=== PATIENT | female | born 1945 | race Caucasian/White ===

== ENCOUNTER 2020-04-23 08:19 | Outpatient (CLI) | payer MEDICARE, SELFPAY ==
--- NOTE | 2020-04-25 18:42 | WPDPFTINT ---
PFT Interpretation PFT Interpretation: DOS:04/23/2020 REQUESTING: Dr. Guy Carrillo REASON FOR TESTING: Dyspnea on exertion PULMONARY FUNCTION TESTS Results are reproducible Spirometry: FEV1 is 93%, FVC 95%, both are normal. FEV1% is 69%, decreased, consistent with mild airflow obstruction. No bronchodilator was given. Lung volumes: TLC 111%, normal. RV is 134% consistent with mild air trapping. Airway resistance is 186% increased. ERV is very low 24%, may be due to increased BMI. Diffusion: DLCO moderately decreased at 54%. Flow volume loop: Mild coving of the expiratory limb. IMPRESSION: Mild obstructive ventilatory impairment with mild air trapping and moderate diffusion impairment. No bronchodilator was given. A trial of bronchodilators can be considered. This pattern is consistent with COPD. Clotilde Real MD
== END 2020-04-23 08:20 | disposition home or self-care (01) ==
PROVIDERS: PCP Family Medicine Adolescent Medicine; Visit Provider Family Medicine Adolescent Medicine
DX: R06.00 Dyspnea, unspecified (principal); R94.2 Abnormal results of pulmonary function studies
CPT/HCPCS: 94375; 94726; 94729

== ENCOUNTER → 2022-11-11 10:54 | Outpatient (CLI) | payer MEDICARE, SELFPAY ==
--- NOTE | ~2022-11-11 | XR_ITS ---
XR hip LT min 2V 11/11/2022 11:15 Indication: Left hip pain Procedure: 2 views left hip Comparison: No prior studies for comparison. Findings: No fracture or traumatic malalignment. Mild osteoarthritis of the left hip. No significant soft tissue abnormality. Surrounding osseous structures within normal limits. Impression: 1: No acute bone or joint abnormality. Reviewed, dictated and finalized at location A. IFIED TECHNICIAN SPECIALIST Impression: 1: No acute bone or joint abnormality.
== END ==
PROVIDERS: PCP Family Medicine Adolescent Medicine; Visit Provider Physician Assistant
DX: M25.552 Pain in left hip (principal)
CPT/HCPCS: 73502

== ENCOUNTER 2023-03-22 09:36 | Outpatient (CLI) | payer MEDICARE, SELFPAY ==
--- NOTE | 2023-03-22 12:35 | WPDSIXMINUTE ---
Six Minute Walk Procedure Procedure Performed Pulmonary Stress Test (6 min walk) Six Minute Walk Six Minute Walk: This is a 6 minute walk test. The test was performed and interpreted in accordance with the 2014 ERS/ATS task force guidelines. of note the patient walked with a cane. Findings: The patient's resting room air oxygen saturation measured by pulse oximetry was 94% and heart rate was 72 bpm. Patient ambulated for 274 meters and oxygen saturation remained 92 to 97%. Heart rate at the end of the study was 94 bpm. The patient did not qualify for supplemental oxygen at rest or with ambulation. There are no prior studies for comparison.
--- NOTE | 2023-03-22 12:37 | P.PCNPFT_ITS ---
PFT Procedure Performed PFT Procedure Performed Plethysmography (Lung Vol) Diffusing Cap (DLCO) Flow Vol Loop Spirometry w/o Bronchodil PFT Interpretation This is a pulmonary function test with spirometry, plethysmography and diffusing capacity. The test was performed and results interpreted in accordance with the 2019 and 2005 ATS/ERS Task Force guidelines respectively using the Global Lung Function Initiative-2012 reference equations. Patient demonstrated good effort and cooperation. Reproducibility criteria were met. The quality of the spirometry maneuver was Grade A. Findings: Spirometry: The contour the inspiratory and expiratory flow tracing are normal. The FVC is 3.54 L, 120% predicted. The FEV1 is 2.30 L, 103% predicted. The FEV1: FVC ratio 65%. Plethysmography: The total lung capacity is 6.13 L, 112% predicted. The functional residual capacity is 3.19 L, 100% predicted. The residual volume is 2.57 L, 104% predicted. Diffusion capacity: The diffusing capacity unadjusted for hemoglobin and carboxyhemoglobin is 15.5, 74% predicted. Diffusing capacity adjusted for alve olar volume is 3.29, 81% predicted. In comparison to previous pulmonary function testing on 04/23/2020 the FVC has increased from 2.94 L to 3.54 L. the FEV1 has increased from 2.04 L to 2.30 L. the total lung capacity is unchanged from 5.99 L to 6.13 L. The functional residual capacity is unchanged from 3.30 L to 3.19 L. The residual volume is unchanged from 2.97 L to 2.57 L. The diffusing capacity unadjusted for hemoglobin and carboxyhemoglobin is increased from 13.5 to 15.5. The diffusing capacity adjusted for alveolar volume is unchanged from 3.17 to 3.29. Impression: The spirometry is normal without evidence of an obstructive abnormality. The lung volumes are normal. The diffusing capacity is normal. In comparison to previous pulmonary function testing on 04/23/2020 there has been a greater than anticipated time dependent increase in the FVC, FEV1 and diffusing capacity unadjusted for hemoglobin and carboxyhemoglobin with no significant change in the total lung capacity, functional residual capacity, residual volume or diffusing capacity adjusted for alveolar volume. Clinical correlation is recommended.
== END 2023-03-22 09:37 | disposition home or self-care (01) ==
LOC: ANHPFT 09:38
PROVIDERS: PCP Family Medicine Adolescent Medicine; Visit Provider Nurse Practitioner Family
DX: J44.9 Chronic obstructive pulmonary disease, unspecified (principal)
CPT/HCPCS: 94375; 94618; 94726; 94729

== ENCOUNTER 2023-07-12 16:30 | Outpatient (RCR) | payer MEDICARE, SELFPAY | END 2023-07-12 23:59 | disposition home or self-care (01) | LOC: ANHCPREHAB 16:30 | PROVIDERS: PCP Family Medicine Adolescent Medicine; Visit Provider Family Medicine Adolescent Medicine | DX: J44.9 Chronic obstructive pulmonary disease, unspecified (principal) | CPT/HCPCS: 94625 ==

== ENCOUNTER → 2023-08-24 14:33 | Outpatient (CLI) | payer MEDICARE, SELFPAY ==
--- NOTE | ~2023-08-24 | XR_ITS ---
XR chest 2V DATE: 08/24/2023 14:51 INDICATION: Chronic obstructive pulmonary disease TECHNIQUE: PA and lateral chest COMPARISON: 03/20/2019 PA and lateral chest FINDINGS: Normal heart size. No hilar or mediastinal enlargement. There is moderate bilateral hyperinflation consistent with history of COPD. There is mild left retrocardiac lower lobe infiltrate and/atelectasis. No pulmonary infiltrate or consolidation, pleural effusion or pulmonary vascular congestion or pneumo thorax is noted otherwise. IMPRESSION: Mild left lower lobe infiltrate and/atelectasis COPD Reviewed, dictated and finalized at location A. OLL SERVICES ANALYST
== END ==
PROVIDERS: PCP Nurse Practitioner Family; Visit Provider Nurse Practitioner Family
DX: R05.9 Cough, unspecified (principal); J44.9 Chronic obstructive pulmonary disease, unspecified; R91.8 Other nonspecific abnormal finding of lung field
CPT/HCPCS: 71046

== ENCOUNTER 2023-09-26 12:38 | Outpatient (CLI) | payer MEDICARE, SELFPAY ==
--- NOTE | 2023-09-26 16:55 | WPDSIXMINUTE ---
Six Minute Walk Procedure Procedure Performed Pulmonary Stress Test (6 min walk) Six Minute Walk Six Minute Walk: This is a 6 minute walk test. The test was performed and interpreted in accordance with the 2014 ERS/ATS task force guidelines. Findings: The patient's resting room air oxygen saturation measured by pulse oximetry was 96% and heart rate was 76 bpm. Patient ambulated for 366 meters and oxygen saturation remained 93 to 96%. Heart rate at the end of the study was 99 bpm. The patient did not qualify for supplemental oxygen at rest or with ambulation. In comparison to 6 minute walk performed on 03/22/2023 the ambulatory distance increased from 274 meters to 366 meters.
== END 2023-09-26 12:39 | disposition home or self-care (01) ==
LOC: ANHPFT 12:39
PROVIDERS: PCP Nurse Practitioner Family; Visit Provider Family Medicine Adolescent Medicine
DX: J44.9 Chronic obstructive pulmonary disease, unspecified (principal)
CPT/HCPCS: 94618

== ENCOUNTER 2023-09-28 13:30 | Outpatient (RCR) | payer MEDICARE, SELFPAY | END 2023-09-28 16:30 | disposition home or self-care (01) | LOC: ANHCPREHAB 13:30 | PROVIDERS: PCP Family Medicine Adolescent Medicine; Visit Provider Family Medicine Adolescent Medicine | DX: J44.9 Chronic obstructive pulmonary disease, unspecified (principal) | CPT/HCPCS: 93798; 94625 ==

== ENCOUNTER 2024-07-15 13:54 | Outpatient (CLI) | payer MEDICARE, SELFPAY ==
--- NOTE | ~2024-07-15 | XR_ITS ---
XR ankle RT 2V 07/15/2024 14:11 INDICATION: Right ankle pain PROCEDURE: 2 views right ankle COMPARISON: No prior studies for comparison. FINDINGS: Fracture, dislocation or subluxation is not identified. There is moderate lateral soft tiss ue swelling. There is a small degenerative calcaneal enthesophyte. No foreign bodies are identified. IMPRESSION: 1: NO ACUTE BONE OR JOINT ABNORMALITY IDENTIFIED. Reviewed, dictated and finalized at location B.
--- NOTE | ~2024-07-15 | XR_ITS ---
XR ankle LT 2V 07/15/2024 14:11 Indication: Left ankle pain Procedure: 2 views left ankle Comparison: No prior studies for comparison. Findings: There is a small loose body lateral to the fibula, suspicious for an age-indeterminate avul coco fracture. Moderate lateral soft tissue swelling. Ankle mortise intact. Impression: 1: Possible age indeterminate avulsion fracture distal margin of the fibula. Correlate for point tend erness. Reviewed, dictated and finalized at location B. Impression: 1: Possible age indeterminate avulsion fracture distal margin of the fibula. Co rrelate for point tenderness.
== END 2024-07-15 13:55 | disposition home or self-care (01) ==
LOC: GOSHIMG 13:56
PROVIDERS: PCP Nurse Practitioner Family; Visit Provider Nurse Practitioner Family
DX: M25.572 Pain in left ankle and joints of left foot (principal); M25.571 Pain in right ankle and joints of right foot; W19.XXXA Unspecified fall, initial encounter
CPT/HCPCS: 73600

== ENCOUNTER 2024-09-02 09:20 | Outpatient (CLI) | payer MEDICARE, SELFPAY ==
--- NOTE | ~2024-09-02 | NM_ITS ---
EXAMINATION: NM gogo stress w perfusion DATE: 09/02/2024 12:43 INDICATION: Other forms of dyspnea TECHNIQUE: Rest images were obtained following intravenous administration of 8.4 mCi Tc99m tetrofosmi n (Myoview). The patient was infused intravenously with Lexiscan (Regadenoson). Then, 26.2 mCi Tc99m tetrofosmin (Myoview) was administered intravenously, and stress images were obtained. Data was recon structed into short axis and horizontal and vertical long axis SPECT images. Gated SPECT images were also obtained. COMPARISON: None. FINDINGS: There is no definite reversible or fixed perfusion abnormality to suggest ischemia or infar ction. There is normal left ventricular chamber size, wall motion and ejection fraction. Left ventr icular ejection fraction measures 64%. IMPRESSION: 1. Normal myocardial perfusion at rest and during stress. 2. Left ventricular ejection fraction measuring 64%. Reviewed, dictated and finalized at location A. RESSED GAS TESTER
--- NOTE | 2024-09-02 09:25 | EST_ITS ---
Patient Info Name: Britni Rockwell Age: 79 years : 1945 Gender: Female Ht: 67 in Wt: 198 lbs BSA: 2.09 m2 HR: 72 bpm BP: 134 / 85 mmHg Exam Date: 09/02/2024 11:32 AM Exam Location: Echo Lab Patient Status: Outpatient Admit Date: 09/02/2024 Staff Ordering Physician: Priti Wilder APRN Attending Provider: Priti Wilder APRN Exercise Technologist: Elsie Delgado [facility] Exercise Physician: Eyal Acuna DO Exam Type: CA stress gogo w NM Study Info A regadenoson stress test was performed. Summary 1. 1. Negative lexiscan stress test for ischemic ST changes by ECG criteria. 2. 2. Stable hemodynamics throughout the test. 3. 3. Nuclear scan to follow and will be reported separately. Please correlate with it. 4. 4. Patient informed of the above results. Protocol: Lexiscan Stress ECG Details Stage: REST Duration (min): 3 min : 1 sec HR (bpm): 71 SBP (mmHg): 134 DBP (mmHg): 85 Stage: REST Duration (min): 7 min : 54 sec HR (bpm): 72 SBP (mmHg): 134 DBP (mmHg): 85 Stage: STAGE 1 Duration (min): 1 min : 0 sec HR (bpm): 84 SBP (mmHg): 156 DBP (mmHg): 87 Stage: RECOVERY Duration (min): 1 min : 0 sec HR (bpm): 84 SBP (mmHg): 156 DBP (mmHg): 87 Stage: RECOVERY Duration (min): 2 min : 0 sec HR (bpm): 84 SBP (mmHg): 156 DBP (mmHg): 87 Stage: RECOVERY Duration (min): 3 min : 0 sec HR (bpm): 82 SBP (mmHg): 148 DBP (mmHg): 83 Stage: RECOVERY Duration (min): 3 min : 5 sec HR (bpm): 82 SBP (mmHg): 148 DBP (mmHg): 83 Rest HR: 72 bpm Peak HR: 87 bpm Rest Sys BP: 134 mmHg Peak Sys BP: 156 mmHg Max Pred HR: 142 bpm % Max Pred HR: 61 % Target HR: 121 bpm Max RPP: 13,572 bpm*mmHg Termination Reason: Completed protocol Cardiac Symptoms: Shortness of breath Total Time: 1 min : 0 sec Rest Ba BP: 85 mmHg Peak Ba BP: 87 mmHg Total Dose: 0.4 mg Resting ECG Sinus rhythm. Stress ECG No ST changes. Arrhythmias None. Report Signatures
== END 2024-09-02 09:21 | disposition home or self-care (01) ==
LOC: ANHCARD 09:20
PROVIDERS: PCP Nurse Practitioner Family; Visit Provider Nurse Practitioner Family
DX: R06.09 Other forms of dyspnea (principal)
CPT/HCPCS: 78452; 93017; A9502; J2785

== ENCOUNTER 2024-10-29 00:18 | Day surgery (SDC) | payer MEDICARE, SELFPAY ==
[2024-10-15 14:44] VITALS: BMI 31.4
--- OUTSIDE RECORDS SUMMARY | 2024-10-29 00:24 | XMS_ITS | Clinical Summary ---
Author Organization [facility] [place] [address] Address [address] [place] [id number] Care Team Providers Care Shipping Point Inspector Name Role Phone Guy San MD Primary Care Prov ider Allergies No known active allergies Medications Synthroid 125 mcg tablet Take 1 tablet (125 mcg total) by mouth daily 2 Active Anoro Ellipta 62.5-25 mcg/actuation blister with device 1 puff daily 2 Active albuterol HFA (PROVENTIL HFA,VENTOLIN HFA,PROAIR HFA) 90 mcg/actuation inhalerIndicati ons:Viral URI with cough Inhale 2 puffs every 6 (six) hours as needed for wheezing 3 each 4 2 Active mupirocin (BACTROBAN) 2 % ointmentIndicat ions:Bug bite, initial encounter Apply topically 3 (three) times a day 22 g 2 Active benzonatate (TESSALON) 100 mg capsuleIndicati ons:Cough Take 1 capsule (100 mg total) by mouth 3 (three) times a day as needed for cough 42 capsule 3 Active Active Problems No known active problems Social History Tobacco Use Types Packs/Day Years Used Date Smoking Tobacco: Former Tobacco Cessation:Counseling Given: Not Answered Comments Unknown Sex and Gender Information Value Date Recorded Sex Assigned at Not on file Legal Sex Female 4:52 PM NANNY BABYSITTER Gender Identity Not on file Sexual Orientation Not on file Obstetrics History Last Filed Vital Signs Vital Sign Reading Time Taken Comments Blood Pressure 124/78 08/11/2023 4:10 PM NANNY BABYSITTER Pulse 86 08/11/2023 4:10 PM NANNY BABYSITTER Temperature 36.8 ??C (98.2 ??F) 08/11/2023 4:10 PM CS T Respiratory Rate 16 08/11/2023 4:10 PM NANNY BABYSITTER Oxygen Saturation 98% 08/11/2023 4:10 PM NANNY BABYSITTER Inhaled Oxygen Concentration - - Weight 103.6 kg (228 lb 8 oz) 05/21/2023 4:55 PM CDT Height 172.7 cm (5' 7.99 ) 05/21/2023 4:55 PM CD T Body Mass Index 34.75 05/21/2023 4:55 PM CDT Plan of Treatment Health Maintenance Due Date Last Done Comments Depression Screening 1945 Fall Risk Assessment 1945 Hepatitis C Screening 1945 Osteoporosis Screening-Bone Density Scan 1945 DTaP/Tdap/Td Vaccine (1 - Tdap) 1957 Hepatitis B Screening 1964 Zoster Vaccine (1 of 2) 1996 Pneumococcal vaccine 65+ (1 of 1 - PCV) 2011 Well Visit 65+ 2011 Covid-19 Vaccine ( season) 2024 07/18/2021, 12/14/2020, 11/23/2020 Influenza Vaccine (#1) 2024 07/18/2021 Insurance MEDICARE [facility] MEDICARE [facility] Address: [address] [address] [place] [address] [employer] Care Teams Shipping Point Inspector Relationship Specialty Start Date End Date Guy San MD [address] [place] [address] PCP - General Family Medicine 08/25/21
--- OUTSIDE RECORDS SUMMARY | 2024-10-29 00:24 | XMS_ITS | Referral Summary ---
Author Organization [facility] [place] [address] [place] Address [address] [place] [id number] Care Team Providers Care Service Specialist Name Role Phone Guy San MD Primary [...] on file Legal Sex Female 4:52 PM PAINTER CHASSIS Gender Identity Not on file Sexual Orientation Not on file Last Filed Vital Signs Vital Sign Reading Time Taken Comments Blood Pressure 124/78 08/11/2023 4:10 PM PAINTER CHASSIS Pulse 86 08/11/2023 4:10 PM PAINTER CHASSIS Temperature 36.8 ??C (98.2 ??F) 08/11/2023 4:10 PM CS T Respiratory Rate 16 08/11/2023 4:10 PM PAINTER CHASSIS Oxygen Saturation 98% 08/11/2023 4:10 PM PAINTER CHASSIS Inhaled Oxygen Concentration - - Weight 103.6 kg (228 lb 8 oz) 05/21/2023 4:55 PM CDT Height 172.7 cm (5' 7.99 ) 05/21/2023 4:55 PM CD T Body Mass Index 34.75 05/21/2023 4:55 PM CDT Plan of Treatment Not on file Insurance MEDICARE [employer] [facility] MEDICARE [employer] Care Teams Service Specialist Relationship Specialty Start Date End Date Guy San MD [address] [place] [address] PCP - General Family Medicine 08/25/21
[2024-10-29 06:00] VITALS: BP 163/101; PULSE 86; RESP 20; TEMP 36.6; O2SAT 98
--- NOTE | 2024-10-29 10:51 | P.PNAN_ITS ---
Anes - Initial Pre Proc Eval Procedure: Operation Date: 10/29/24 11:00 Proposed Procedures p Colonoscopy - Lenin Caal MD Date/Time: 10/29/24 10:51 Surgeon: Lenin Caal MD Pre Op Diagnosis: family history of malignant neoplasm digestive org Patient Data Age: 79 Gender: F Height: 1.7 m Weight: 90.9 kg Allergies Allergy/AdvReac Type Severity Reaction Status Date / Time umeclidinium (From Anoro AdvReac Intermediate Rash Verified 10/29/24 10:42 Ellipta) vilanterol (From Anoro AdvReac Intermediate Rash Verified 10/29/24 10:42 Ellipta) [id number] Reductase AdvReac Unknown Joint Pain Verified 10/29/24 10:42 Inhibitor Home Medications ?Medication ?Instructions ?Recorded ?Confirmed ?Type albuterol sulfate 90 mcg/actuation 1 puff inhalation Q4H PRN 09/08/23 10/15/24 Rx aerosol inhaler shortness of breath or wheezing #8.5 grams albuterol sulfate 5 mg/mL(0.5 %) 2.5 mg (0.5 mL) inhalation Q6H PRN 07/16/24 10/29/24 Rx solution for nebulization shortness of breath or wheezing #600 mL arformoterol 15 mcg/2 mL solution 2 ml inhalation BID #120 mL 07/16/24 10/15/24 Rx for nebulization budesonide 0.25 mg/2 mL suspension 0.25 mg (2 mL) inhalation BID #120 07/16/24 10/15/24 Rx for nebulization mL levothyroxine 150 mcg tablet 150 mcg PO DAILY #90 tabs 08/08/24 10/29/24 Rx ferrous sulfate 325 mg (65 mg 325 mg PO DAILY 10/15/24 10/29/24 History iron) tablet (Iron (ferrous sulfate)) vit C 250 mg-vit E 200 unit-zinc 1 cap PO .qday 10/15/24 10/29/24 History ox 12.5 vu-avdmmf-oplxxd-zeax capsule Patient hx anesthesia problems: none Family hx anesthesia problems: none Results Review: All pre-operative results and documents have been reviewed as part of the pre-operative evaluation. [facility] Past Medical History Medical History Acute sickle cell crisis Family History Family History Father Carcinoma of colon Mother Heart disease Social History Social History Smoking packs per day: 0.4 Smoking cigarettes per day: 8.0 Years smoked: 20 Smoking pack-years: 8.00 Smoking status: Former smoker Tobacco type: cigarettes Second hand tobacco smoke exposure: No Smoking end date: 09/24/95 Additional smoking assessment comments: states she smoked off and on over the years at times for years Alcohol intake: current Drinks per week: 2 Alcohol use details: couple times a month Substance use: never Substance use type: does not use Lack of Transportation: No Lack of Food: Never True Current Housing: I Have Housing Concerned About Future Housing: No Difficulty Paying Gas/Electric Bills: No Difficulty Paying for Meds: No Currently Unemployed: No Education: Associate Degree Difficulty w/ Childcare or Family Care: No Living arrangements: with family Additional living arrangements comments: with daughter Occupation/Education: retired Gender identity (if verbalized by the patient): Female Sexual Orientation (if Verbalized by the Patient): Straight or Heterosexual Spiritual care concerns: No Agree to blood products: Yes Anes - Eval Final PreProcedure Day of Procedure 10/29/24 10:51 Patient weight: obese Heart: regular rate and rhythm Lungs: decreased breath sounds Airway: Mallampati scale class II Neurological: alert and oriented Last oral intake: >/= 8 hours ASA classification: III Emergent: no Anesthetic plan: proceed Anesthesia type and monitoring: general GIVS and standard monitoring Results Review: All pre-operative results and documents have been reviewed as part of the pre-operative evaluation. Informed Consent: The patient's anesthetic plan and its attendant risks and benefits were discussed with the patient/family/POA. Questions were solicited and answers provided to the satisfaction of the patient/family/POA.
[2024-10-29 11:02] VITALS: BMI 34.1
--- NOTE | 2024-10-29 11:27 | PM.HPGS ---
History of Present Illness History of Present Illness Consent: Risks, benefits, and alternatives have been discussed and questions answered. Patient agrees to proceed with procedure. Chief complaint: family history of malignant neoplasm digestive org Narrative: Britni Rockwell is a 79 year old female here for first screening colonoscopy, also h/o chronic diarrhea Review of Systems Review of Systems: All systems reviewed & are unremarkable except as noted in HPI and below PMFSH Past Medical History Medical History Acute sickle cell crisis Family History Family History Father Carcinoma of colon Mother Heart disease Social History Social History Smoking packs per day: 0.4 Smoking cigarettes per day: 8.0 Years smoked: 20 Smoking pack-years: 8.00 Smoking status: Former smoker Tobacco type: cigarettes Second hand tobacco smoke exposure: No Smoking end date: 09/24/95 Additional smoking assessment comments: states she smoked off and on over the years at times for years Alcohol intake: current Drinks per week: 2 Alcohol use details: couple times a month Substance use: never Substance use type: does not use Lack of Transportation: No Lack of Food: Never True Current Housing: I Have Housing Concerned About Future Housing: No Difficulty Paying Gas/Electric Bills: No Difficulty Paying for Meds: No Currently Unemployed: No Education: Associate Degree Difficulty w/ Childcare or Family Care: No Living arrangements: with family Additional living arrangements comments: with daughter Occupation/Education: retired Gender identity (if verbalized by the patient): Female Sexual Orientation (if Verbalized by the Patient): Straight or Heterosexual Spiritual care concerns: No Agree to blood products: Yes Meds Home Medications and Allergies Home Medications ?Medication ?Instructions ?Recorded ?Confirmed ?Type albuterol sulfate 90 mcg/actuation 1 puff inhalation Q4H PRN 09/08/23 10/15/24 Rx aerosol inhaler shortness of breath or wheezing #8.5 grams albuterol sulfate 5 mg/mL(0.5 %) 2.5 mg (0.5 mL) inhalation Q6H PRN 07/16/24 10/29/24 Rx solution for nebulization shortness of breath or wheezing #600 mL arformoterol 15 mcg/2 mL solution 2 ml inhalation BID #120 mL 07/16/24 10/15/24 Rx for nebulization budesonide 0.25 mg/2 mL suspension 0.25 mg (2 mL) inhalation BID #120 07/16/24 10/15/24 Rx for nebulization mL levothyroxine 150 mcg tablet 150 mcg PO DAILY #90 tabs 08/08/24 10/29/24 Rx ferrous sulfate 325 mg (65 mg 325 mg PO DAILY 10/15/24 10/29/24 History iron) tablet (Iron (ferrous sulfate)) vit C 250 mg-vit E 200 unit-zinc 1 cap PO .qday 10/15/24 10/29/24 History ox 12.5 sz-eaamdj-phdycu-zeax capsule Allergies Allergy/AdvReac Type Severity Reaction Status Date / Time umeclidinium (From Anoro AdvReac Intermediate Rash Verified 10/29/24 10:42 Ellipta) vilanterol (From Anoro AdvReac Intermediate Rash Verified 10/29/24 10:42 Ellipta) [id number] Reductase AdvReac Unknown Joint Pain Verified 10/29/24 10:42 Inhibitor Vital Signs Vital Signs - 24 hr 10/29/24 06:00 Temperature 98 F Pulse Rate 86 Respiratory Rate 20 Blood Pressure 163/101 H Pulse Oximetry 98 Oxygen Delivery Room Air Exam Const: General: comfortable and no acute distress HENMT: Face/Nose/Sinus: Normal nares present Eyes: General: appearance normal, both eyes and all related structures Neck: Neck: no JVD Resp: Auscultation: clear to auscultation bilaterally Cardio: Rate: regular rate Rhythm: regular rhythm GI: Inspection: non-distended GI Palp: Yes Soft to palpation Skin: General skin exam: normal color Neuro: General: gait normal Speech: normal speech Extrem: General: normal to inspection Psych: Mental Status: mental status grossly normal Assessment and Plan Assessment and plan (1) Family history of colon cancer in father: Code(s): Z80.0 - Family history of malignant neoplasm of digestive organs Status: Acute Assessment and Plan: colonoscopy (2) Diarrhea: Code(s): R19.7 - Diarrhea, unspecified Status: Acute
[2024-10-29] MEDS: LACTATED RINGERS 1,000 ML 150 ML IV CONT (11:45)
[2024-10-29 11:46] VITALS: BP 131/69; PULSE 66; RESP 14; O2SAT 99
[2024-10-29 11:56] VITALS: BP 150/81; PULSE 62; RESP 16; O2SAT 100
[2024-10-29 12:06] VITALS: BP 151/84; PULSE 61; RESP 18; O2SAT 100
== END 2024-10-29 12:27 | disposition home or self-care (01) ==
PROVIDERS: PCP Nurse Practitioner Family; Referring Provider Nurse Practitioner; Visit Provider Internal Medicine Gastroenterology
PROC: 0DJD8ZZ Inspection of Lower Intestinal Tract, Via Natural or Artificial Opening Endoscopic (ICD-10-PCS; CPT 45378; principal; 2024-10-29 11:00)
DX: Z12.11 Encounter for screening for malignant neoplasm of colon (principal); K52.832 Lymphocytic colitis; D12.2 Benign neoplasm of ascending colon; K57.30 Diverticulosis of large intestine without perforation or abscess without bleeding; K64.8 Other hemorrhoids; Z87.891 Personal history of nicotine dependence; Z80.0 Family history of malignant neoplasm of digestive organs; E66.9 Obesity, unspecified; Z68.34 Body mass index [BMI] 34.0-34.9, adult
CPT/HCPCS: 45385; 45380; 88305; J2003; J2704; J7120